=== PATIENT | female | born 2005 | race Caucasian/White ===

== ENCOUNTER 2023-05-27 21:10 | Emergency (ER) | payer OTHER, SELFPAY ==
[2023-05-27 21:15] VITALS: BP 104/55; PULSE 58; RESP 16; TEMP 36.6; O2SAT 98; BMI 24.1
[2023-05-27 21:41] LABS: Ictotest Urine Positive (Negative)
[2023-05-27 21:46] LABS: Bacteria Urine Many (>30); RBC Urine 30-100/HPF (0-5/HPF); Squamous Epithelial Cell Urine 5-10 /HPF (0-5/HPF); WBC Urine 5-10/HPF (0-5/HPF)
[2023-05-27 21:47] LABS: Culture Indicated Urine Specimen Cultured; Mucus Urine 1+ (Negative)
--- NOTE | 2023-05-27 23:14 | DI.US.S_ITS ---
PROCEDURE: US RENAL COMPLETE INDICATIONS: BILATERAL FLANK PAIN AND HEMATURIA TECHNIQUE: Real-time scanning was performed of the kidneys and bladder, with image documentation. COMPARISON: None. FINDINGS: Kidneys: Kidneys are normal in size. Right kidney measures 9.9 cm long; left kidney measures 11.0 cm long. Right renal cortical thickness is 1.0 cm; left renal cortical thickness is 1.1 cm. Renal cortical echotexture is normal. No hydronephrosis or nephrolithiasis. No suspicious solid mass lesions. Bladder: Pre-void bladder volume is 5.7 mL. Miscellaneous: No free pelvic fluid. IMPRESSION: No hydronephrosis or nephrolithiasis found. The bladder is not urine filled at time of scanning. Dictated by: Scott Song M.D. on 05/28/2023 at 1:34 Approved by: Scott Song M.D. on 05/28/2023 at 1:35
[2023-05-27] MEDS: KETOROLAC 30 MG/ML VIAL IM (23:18)
[2023-05-27] MEDS: ONDANSETRON 4 MG ODT PREPACK 1 BOTTLE MISC (23:18)
[2023-05-27 23:46] VITALS: BP 93/54; PULSE 56; O2SAT 100
[2023-05-27 23:47] VITALS: BP 96/54; PULSE 58; O2SAT 100
--- NOTE | 2023-05-27 23:51 | ED_ITS ---
HPI - Female Genitourinary General Chief complaint: Urogenital-Female Stated complaint: UTI symptoms Time Seen by Provider: 05/27/23 21:18 Source: patient Mode of arrival: Ambulatory History of Present Illness HPI Narrative: 17-year-old female nonsmoker without any chronic medical history presents with chief complaint of dysuria, frequency and urgency starting last night. Additionally she noticed some hematuria and over the course of the day he is become nauseated and has bilateral flank pain. She denies any fever or chills. She states her pain is worse when she moves and improves with rest. She denies vaginal bleeding or discharge. Related Data Previous Rx's Medication Instructions Recorded cephalexin 500 mg capsule 500 mg PO Q6H 7 days #28 caps 05/28/23 Allergies Allergy/AdvReac Type Severity Reaction Status Date / Time No Known Drug Allergies Allergy Verified 05/27/23 21:15 Review of Systems Review of Systems Narrative: GENERAL: Denies chills, fatigue, malaise, fever, sweats. HEENT: Denies sinus pain, ear pain, sore throat, difficulty swallowing, dizziness. RESPIRATORY: Denies dyspnea, cough, wheezing, hemoptysis, sputum. CARDIOVASCULAR: Denies chest pain, palpitations, orthopnea, edema, GASTROINTESTINAL: Denies nausea, vomiting, abdominal pain, diarrhea, constipation, melena. : See HPI MUSCULOSKELETAL: denies weakness, joint pain, or bony pain SKIN: Denies rash, skin lesions, or other NEUROLOGIC: Denies weakness, headache, numbness, change in speech, confusion, seizures, incoordination. PSYCHIATRIC: No concerning psychosocial issues. 12 point review of systems is negative except for those stated above Patient History alcohol intake frequency: a few times a week Substance Use Type: marijuana Exam Narrative Exam Narrative: GENERAL: [17] year old patient appears stated age. Well-developed patient, in mild distress. HEAD: Atraumatic. Normocephalic. EYES: Pupils equal round and reactive. Extraocular motions intact. No scleral icterus. No injection or drainage. ENT: Nose without bleeding, purulent drainage. Throat without erythema, tonsillar hypertrophy or exudate. Airway patent. NECK: Trachea midline. Non tender CARDIOVASCULAR: Regular rate and rhythm without murmurs, gallops, or rubs. RESPIRATORY: Clear to auscultation. Breath sounds equal bilaterally. No wheezes, rales, or rhonchi. GASTROINTESTINAL: Abdomen soft, non-tender, nondistended. EXTREMITIES: No edema or joint tenderness. BACK: Nontender without deformity or crepitance. Bilateral CVA tenderness NEURO: AOx3. SKIN: No rash or erythema of visible areas Initial Vital Signs Initial Vital Signs: Vital Signs Temperature 98 F 05/27/23 21:15 Pulse Rate 58 L 05/27/23 21:15 Respiratory Rate 16 05/27/23 21:15 Blood Pressure 104/55 L 05/27/23 21:15 Pulse Oximetry 98 05/27/23 21:15 Oxygen Delivery Method Room Air 05/27/23 21:15 Course Orders Ordered: Discontinued Medications Lactated Ringer's (Lactated Ringers) 1,000 mls @ 1,000 mls/hr IV BOLUS ONE Stop: 05/28/23 01:13 Last Infusion: 05/28/23 02:55 Dose: 0 mls/hr Documented By: Infusion: 05/28/23 00:57 Dose: 0 mls/hr Documented By: Admin: 05/28/23 00:26 Dose: 1,000 mls/hr Documented By: GREG Ceftriaxone Sodium 2,000 mg/ (Sodium Chloride) 100 mls @ 200 mls/hr IV NOW ONE Stop: 05/28/23 00:16 Last Infusion: 05/28/23 02:14 Dose: 0 mls/hr Documented By: Admin: 05/28/23 00:58 Dose: 200 mls/hr Documented By: GREG Ketorolac Tromethamine (Ketorolac 30 Mg/Ml Vial) 30 mg IM NOW ONE Stop: 05/27/23 23:15 Last Admin: 05/27/23 23:18 Dose: 30 mg Documented By: CRISTOBAL Ondansetron HCl (Ondansetron 4 Mg Odt Prepack) 1 bottle MISC SEEINSTR ONE Stop: 05/27/23 23:15 Last Admin: 05/27/23 23:18 Dose: 1 bottle Documented By: CRISTOBAL Vital Signs Vital signs: Vital Signs - 8 hr 05/27/23 21:15 Temperature 98 F Pulse Rate 58 L Respiratory Rate 16 Blood Pressure 104/55 L Pulse Oximetry 98 Oxygen Delivery Method Room Air MDM - Female Genitourinary Lab Data 05/28/23 00:19 05/28/23 00:19 Labs: Lab Results 05/27/23 05/28/23 05/28/23 Range/Units 21:20 00:19 00:19 WBC 8.4 (4.5-11.0) X10^3/uL RBC 4.14 (4.0-5.2) X10^6/uL Hgb 11.8 L (12.0-16.0) g/dL Hct 34.3 L (36-46) % MCV 83.0 (80-100) fL MCH 28.6 (26-34) PG MCHC 34.4 (30-36) % RDW 13.3 (11.6-14.8) % Plt Count 157 (150-400) X10^3/uL Neut % (Auto) 51.9 (50-75) % Lymph % (Auto) 32.9 (25-40) % [place] % (Auto) 13.3 (3-14) % Eos % (Auto) 1.6 L (2-4) % Baso % (Auto) 0.3 (0-2) % Neut # (Auto) 4300 (9487-3653) /uL Lymph # (Auto) 2800 (9034-9297) /uL [place] # (Auto) 1100 H (0-900) /uL Eos # (Auto) 100 (0-450) /uL Baso # (Auto) 0 (0-100) /uL Sodium 137 (137-145) mmol/L Potassium 3.9 (3.4-5.1) mmol/L Chloride 103 (98-107) mmol/L Carbon Dioxide 30 (22-32) mmol/L BUN 22 H (7-17) mg/dL Creatinine 0.73 (0.52-1.04) mg/dL Estimated GFR > 60 (>60) mL/min BUN/Creatinine Ratio 30.1 H (6-22) Glucose 99 (70-100) mg/dL Lactate (0.7-2.1) mmol/L Calcium 9.0 (8.4-10.2) mg/dL Total Bilirubin 1.8 H (0.2-1.3) mg/dL AST 33 (14-36) IU/L ALT 35 H (<35) IU/L Alkaline Phosphatase 87 (38-126) U/L Total Protein 7.0 (6.3-8.2) g/dL Albumin 3.7 (3.5-5.0) g/dL Globulin 3.3 (1.7-4.1) g/dL Albumin/Globulin Ratio 1.1 (1.0-2.8) Procalcitonin (<0.5) ng/mL Ur Bilirubin Confirm Positive H (Negative) Urine RBC 30-100/hpf H (0-5/HPF) Urine WBC 5-10/hpf H (0-5/HPF) Ur Squamous Epith Cells 5-10 /hpf H (0-5/HPF) Urine Bacteria Many (>30) H (None) Urine Mucus 1+ H (Negative) Ur Culture Indicated? Specimen cultured 05/28/23 05/28/23 Range/Units 00:19 00:19 WBC (4.5-11.0) X10^3/uL RBC (4.0-5.2) X10^6/uL Hgb (12.0-16.0) g/dL Hct (36-46) % MCV (80-100) fL MCH (26-34) PG MCHC (30-36) % RDW (11.6-14.8) % Plt Count (150-400) X10^3/uL Neut % (Auto) (50-75) % Lymph % (Auto) (25-40) % [place] % (Auto) (3-14) % Eos % (Auto) (2-4) % Baso % (Auto) (0-2) % Neut # (Auto) (4157-0906) /uL Lymph # (Auto) (1077-7251) /uL [place] # (Auto) (0-900) /uL Eos # (Auto) (0-450) /uL Baso # (Auto) (0-100) /uL Sodium (137-145) mmol/L Potassium (3.4-5.1) mmol/L Chloride (98-107) mmol/L Carbon Dioxide (22-32) mmol/L BUN (7-17) mg/dL Creatinine (0.52-1.04) mg/dL Estimated GFR (>60) mL/min BUN/Creatinine Ratio (6-22) Glucose (70-100) mg/dL Lactate 0.7 (0.7-2.1) mmol/L Calcium (8.4-10.2) mg/dL Total Bilirubin (0.2-1.3) mg/dL AST (14-36) IU/L ALT (<35) IU/L Alkaline Phosphatase (38-126) U/L Total Protein (6.3-8.2) g/dL Albumin (3.5-5.0) g/dL Globulin (1.7-4.1) g/dL Albumin/Globulin Ratio (1.0-2.8) Procalcitonin 0.04 (<0.5) ng/mL Ur Bilirubin Confirm (Negative) Urine RBC (0-5/HPF) Urine WBC (0-5/HPF) Ur Squamous Epith Cells (0-5/HPF) Urine Bacteria (None) Urine Mucus (Negative) Ur Culture Indicated? Point of Care Testing Test Results Negative Urine Dip Bedside Urine Glucose Negative Bedside Urine Bilirubin ++ 2 Bedside Urine Ketone +/- 5 Urine Specific [place] 1.03 Bedside Urine Occult Blood +++ Bedside Urine pH 6 Bedside Urine Protein +++ 300 Bedside Urine Urobilinogen - Negative Bedside Urine Nitrite + Positive Bedside Urine Leukocytes + 70 Esterase MDM Narrative Medical decision making narrative: [17] year old patient presents with dysuria, frequency, urgency, hematuria and flank pain Multiple etiologies for patient's symptoms considered including, but not limited to: [Pyelonephritis versus kidney stone versus other] Prior Charts reviewed in our EMR Primary Historian: patient Labs reviewed and interpreted by myself: No leukocytosis or left shift, no signs of anemia, electrolytes and renal function within normal, urine notes positive RBCs, white blood cells, bacteria, urine POC notes leuk esterase and nitrites. Imaging reviewed: Renal ultrasound negative for obstructive process Patient's symptoms improved over duration of stay with above-stated therapies. No evidence of sepsis, multiple diagnoses considered as noted above, however there is no evidence of obstructive uropathy, hydronephrosis on ultrasound, kidney stone less likely especially given reproducible and non colicky type pain. Significance of elevated bilirubin unclear, perhaps related to infection as an acute phase reactant, no epigastric or right upper quadrant pain, no provocation with eating or drinking, no classic biliary symptoms. Findings and discharge diagnosis discussed with patient/family followed by verbalization of understanding Return precautions discussed with patient/family whom verbalize understanding of diagnosis and plan Discharge Plan Departure Patient Disposition: Home Clinical Impression: Pyelonephritis Instructions: DI for Kidney Infection Activity Restrictions/Additional Instructions: *You have been diagnosed with [pyelonephritis. As we discussed your history and physical exam are reassuring, urine is quite convincing for an infectious proce ss and thankfully your other labs and imaging are reassuring.] *What to do: *Please continue to take your regular medications as directed. [ ] New medication prescriptions sent to your pharmacy: [ ] [ x] New medication written as a paper prescription [ ] No new medications given *Please follow up with your primary care provider in 2-3 days, call for an appointment. Let them know you were seen in the Emergency Department and that we ask that you be seen in follow up. We will electronically transmit a record of today's note if your PCP is in our system *If you do not have a primary care provider please contact the [facility] Resource line at [phone]. They will ask some questions about your medical history and help get you set up with a doctor in the community. *Return to Emergency Department if you should have any new, worsening or concerning symptoms, such as [fever greater than 101 F, shaking chills, worsening pain, persistent vomiting or other bothersome symptoms] Prescriptions: New cephalexin 500 mg capsule 500 mg PO Q6H 7 Days Qty: 28 0RF Stand Alone Forms: Patient Portal/API
[2023-05-28] VITALS (13 sets, daily range): BP systolic 87–116; BP diastolic 50–57; PULSE 53–72; RESP 20; O2SAT 99–100
[2023-05-28] MEDS: LACTATED RINGERS 1,000 ML 1000 ML IV (00:26)
[2023-05-28 00:28] LABS: Add Manual Diff / Slide Review NO; Basophils Absolute Auto 0 /uL (0-100); Basophils Percent Auto 0.3 % (0-2); Eosinophils Absolute Auto 100 /uL (0-450); Eosinophils Percent Auto 1.6 % (2-4); Hematocrit 34.3 % (36-46); Hemoglobin 11.8 g/dL (12.0-16.0); Lymphocytes Absolute Auto 2800 /uL (1100-4500); Lymphocytes Percent Auto 32.9 % (25-40); Mean Corpuscular HGB Conc 34.4 % (30-36); Mean Corpuscular Hemoglobin 28.6 PG (26-34); Monocytes Absolute Auto 1100 /uL (0-900); Monocytes Percent Auto 13.3 % (3-14); Neutrophils Absolute Auto 4300 /uL (1500-7000); Neutrophils Percent Auto 51.9 % (50-75); Platelet Count 157 X10^3/uL (150-400); Red Blood Cell Count 4.14 X10^6/uL (4.0-5.2); Red Cell Distribution Width 13.3 % (11.6-14.8); White Blood Cell Count 8.4 X10^3/uL (4.5-11.0)
[2023-05-28 00:40] LABS: Alanine Aminotransferase 35 IU/L (<35); Albumin 3.7 g/dL (3.5-5.0); Albumin Globulin Ratio 1.1 (1.0-2.8); Alkaline Phosphatase 87 U/L (38-126); Aspartate Aminotransferase 33 IU/L (14-36); BUN Creatinine Ratio 30.1 (6-22); Bilirubin Total 1.8 mg/dL (0.2-1.3); Blood Urea Nitrogen 22 mg/dL (7-17); Carbon Dioxide 30 mmol/L (22-32); Chloride 103 mmol/L (98-107); Estimated Glomerular Filt Rate > 60 mL/min (>60); Globulin 3.3 g/dL (1.7-4.1); Glucose 99 mg/dL (70-100); HEMOLYSIS < 15 (0-50); Potassium 3.9 mmol/L (3.4-5.1); Sodium 137 mmol/L (137-145)
[2023-05-28 00:41] LABS: Lactate (Lactic Acid) 0.7 mmol/L (0.7-2.1)
--- NOTE | 2023-05-28 00:50 | PC.NURSE ---
Pt reports being lightheaded after Toradol administration. Asked if patient has been lightheaded any other time and she reports yes to being lightheaded earlier today. Provider made aware and new orders per EMAR.
[2023-05-28 00:57] LABS: Procalcitonin 0.04 ng/mL (<0.5)
[2023-05-28] MEDS: cefTRIAXone 2,000 MG in SODIUM CHLORIDE 0.9% 100 ML 200 MG IV (00:58)
== END 2023-05-28 03:08 | disposition home or self-care (01) ==
PROVIDERS: Emergency Provider Emergency Medicine
DX: N12 Tubulo-interstitial nephritis, not specified as acute or chronic (principal)
CPT/HCPCS: 36415; 76770; 80053; 81003; 81015; 81025; 83605; 84145; 85025; 87040; 87077; 87086; 87186; 96365; 96372; 99284; J0696; J1885